=== PATIENT | male | born 1985 | race Two or more races ===

== ENCOUNTER 2020-03-15 11:00 | Emergency (ER) | payer OTHER ==
[~2020-03-15] VITALS: Ht 175.3 cm; Wt 88.5 kg
--- NOTE | 2020-03-15 11:10 | NUR ---
PT BIBRA FROM HOME C/O FEVER AND SOB, PT IS AAOX4, NOT IN RESPIRATORY DISTRESS, HOOKED TO [employer], KEPT RESTED AND COMFORTABLE, WILL CONTINUE TO MONITOR.
--- NOTE | 2020-03-15 12:00 | NUR ---
AT BEDSIDE FOR EVAL.
--- NOTE | 2020-03-15 12:11 | NUR ---
IV LINE ESTABLISHED BLOOD DRAWN AND SENT TO LAB.
[2020-03-15 12:28] LABS: BASOPHILS % (AUTO) 0.4 % (0.0-2.0); EOSINOPHILS % (AUTO) 0.1 % (0.0-6.0); HEMATOCRIT 42 % (39-51); HEMOGLOBIN 14.3 g/dL (13.5-17.5); LYMPHOCYTES # (AUTO) 1.3 /CMM (0.8-4.8); LYMPHOCYTES % (AUTO) 13.5 % (20.0-44.0); MEAN CORPUSCULAR HGB CONC 34 g/dl (31.0-36.0); MEAN CORPUSCULAR VOLUME 89 fL (80-96); MONOCYTES # (AUTO) 0.8 /CMM (0.1-1.30); MONOCYTES % (AUTO) 8.6 % (2.0-12.0); NEUTROPHILS # (AUTO) 7.3 /CMM (1.8-8.9); NEUTROPHILS % (AUTO) 77.4 % (43.0-81.0); PLATELET COUNT (AUTO) 279 /CMM (150-450); RED BLOOD CELL COUNT(AUTO) 4.78 MIL/uL (4.5-6.0); WHITE BLOOD COUNT (AUTO) 9.5 K/uL (4.3-11.0)
[2020-03-15 12:36] LABS: CALCIUM, SERUM 9.2 mg/dL (8.5-10.1); CARBON DIOXIDE 27 mmol/L (21-32); CHLORIDE 98 mmol/L (98-107); CREATININE 1.3 mg/dL (0.6-1.3); GLUCOSE 120 mg/dL (74-106); POTASSIUM 3.7 mmol/L (3.5-5.1); SODIUM SERUM 135 mmol/L (136-145); UREA NITROGEN, BLOOD 12 mg/dL (7-18)
[2020-03-15] MEDS ORDERED: ACETAMINOPHEN ES 500 MG TABLET ONE (12:36)
[2020-03-15 12:49] LABS: ALANINE AMINOTRANSFERASE 203 U/L (12-78); ALBUMIN 3.5 g/dL (3.4-5.0); ALKALINE PHOSPHATASE 142 U/L (46-116); ASPARTATE AMINOTRANSFERASE 179 U/L (15-37); B-TYPE NATRIURETIC PEPTIDE 99 PG/ML (0-125); BILIRUBIN,TOTAL 0.4 mg/dL (0.2-1.0); TOTAL PROTEIN, SERUM 8.4 g/dL (6.4-8.2)
--- NOTE | 2020-03-15 12:53 | NUR ---
[employer]AL [employer]GI[employer] ENGINE[employer] AT BEDSIDE FOR XRAY.
[2020-03-15] MEDS ORDERED: ACETAMINOPHEN 325 MG TABLET PO ONE (13:00)
[2020-03-15] MEDS ORDERED: ACETAMINOPHEN ES 500 MG TABLET PO ONE (13:00)
[2020-03-15 13:07] LABS: D-DIMER 0.32 mg/L(FEU (0.17-0.50)
--- NOTE | 2020-03-15 13:10 | NUR ---
COVID SWAB OBTAINED AND SENT TO LAB.
[2020-03-15 13:59] LABS: CREATINE KINASE, TOTAL 71 U/L (39-308); FERRITIN 359 ng/mL (8-388)
[2020-03-15 14:01] LABS: C-REACTIVE PROTEIN 18.3 mg/dL (0.0-0.9)
[2020-03-15 14:45] VITALS: BP 135/81
--- NOTE | 2020-03-15 14:45 | NUR ---
Patient discharged to home in stable condition. Written and verbal after care instructions given. Patient verbalizes understanding of instruction.IV removed. Catheter intact and site benign. Pressure and 4x4 applied to site. No bleeding noted.
== END 2020-03-15 14:45 | disposition home or self-care (01) ==
LOC: ER 11:06
DX: U07.1 COVID-19 (principal); J12.89 Other viral pneumonia; J02.9 Acute pharyngitis, unspecified; R74.0 Nonspecific elevation of levels of transaminase and lactic acid dehydrogenase [LDH]
CPT/HCPCS: 36415; 71045; 80053; 82550; 82728; 83605; 83615; 83880; 84145; 84484; 85025; 85378; 85730; 86140; 87040 ×2; 99285; C9803; U0003